=== PATIENT | female | born 1935 | race African-American/Black ===

== ENCOUNTER 2017-05-19 10:22 | Outpatient (CLI) | payer MEDICARE, OTHER ==
--- NOTE | 2017-05-19 11:44 | Diagnostic Imaging Report ---
Indication: Dyspnea Comparison: None 2 views of the chest obtained. The lungs are clear. Cardiomegaly is noted. Aorta is ectatic. The bones appear slight osteopenic. Impression: No acute disease. Cardiomegaly
--- NOTE | 2017-05-26 23:29 | Cardiology Report ---
APPROVED REPORT EKG Measurement Heart [id number] MT [id number] Normal sinus rhythm Normal ECG
== END 2017-05-19 12:22 | disposition home or self-care (01) ==
LOC: RAD 10:22
DX: Z01.818 Encounter for other preprocedural examination (principal); I51.7 Cardiomegaly; I77.819 Aortic ectasia, unspecified site; M85.80 Other specified disorders of bone density and structure, unspecified site
CPT/HCPCS: 71020; 93005